=== PATIENT | female | born 1990 | race Caucasian/White ===

== ENCOUNTER 2019-01-03 07:51 | Inpatient (IN) | payer OTHER ==
[2019-01-03] MEDS ORDERED: METHYLERGONOVINE 0.2 MG INJ IM (09:00)
[2019-01-03] MEDS ORDERED: OXYTOCIN 30 UNITS/LR 500 ML IV (09:00)
[2019-01-03] MEDS ORDERED: CARBOPROST 250 MCG INJ IM (09:00)
[2019-01-03] MEDS ORDERED: MISOPROSTOL 200 MCG TAB PR (09:00)
[2019-01-03 09:05] LABS: ADD MAN DIFF? NO
[2019-01-03 09:08] LABS: WHITE BLOOD COUNT 12.3 10^3/ul (4.8-10.8)
[2019-01-03 09:08] LABS: BASOPHILS % 0.3 % (0.0-2.0); EOSINOPHILS # 0.1 10^3/ul (0.0-0.5); EOSINOPHILS % 0.7 % (0.0-7.0); HEMATOCRIT 37.5 % (37.0-47.0); HEMOGLOBIN 11.8 g/dl (12.0-16.0); LYMPHOCYTES # 2.5 10^3/ul (0.8-2.9); LYMPHOCYTES % 20.7 % (15.0-51.0); MEAN CORPUSCULAR HEMOGLOBIN 26.2 pg (29.0-33.0); MEAN CORPUSCULAR HGB CONC 31.5 g/dl (32.0-37.0); MEAN CORPUSCULAR VOLUME 83.3 fl (82.0-101.0); MEAN PLATELET VOLUME 12.2 fl (7.4-10.4); MONOCYTE # 0.7 10^3/ul (0.3-0.9); MONOCYTES % 5.8 % (0.0-11.0); NEUTROPHIL # 8.8 10^3/ul (1.6-7.5); NEUTROPHILS % 71.4 % (39.0-77.0); PLATELET COUNT 220 10^3/UL (140-415); RED CELL DISTRIBUTION WIDTH 15.4 % (11.5-14.5)
[2019-01-03 09:30] LABS: INR 0.87; PROTIME 11.9 Sec (11.9-14.9); PT RATIO 0.9
[2019-01-03 09:31] LABS: PARTIAL THROMBOPLASTIN TIME 28.3 Sec (23.0-35.0)
[2019-01-03] MEDS: LACTATED RINGER'S 1,000 ML IV ×3 (11:34→22:45)
[2019-01-03] MEDS: MISOPROSTOL 50 MCG CAPSULE PO ×3 (12:35→20:50)
[2019-01-03 19:19] LABS: RAPID PLASMA REAGIN NONREACTIVE (NR)
[2019-01-04] MEDS: MISOPROSTOL 50 MCG CAPSULE PO ×3 (00:50→09:00)
[2019-01-04] MEDS: LACTATED RINGER'S 1,000 ML IV ×2 (03:59→08:27)
[2019-01-04] MEDS ORDERED: FENTAnyl 50 MCG/ML VIAL (10:40)
[2019-01-04] MEDS ORDERED: FENTAnyl 2MCG/ML-ROPIV 0.2% 100 ML (10:40)
[2019-01-04] MEDS ORDERED: NALOXONE (0.4 MG/ML) INJ IV (11:00)
[2019-01-04] MEDS ORDERED: FENTAnyl 2MCG/ML-ROPIV 0.2% 100 ML BAG EPI (11:00)
[2019-01-04] MEDS: LIDOCAINE 1% (MPF) 30 ML INJ INJ (12:28)
[2019-01-04] MEDS: OXYTOCIN 30 UNITS/LR 500 ML IV ×2 (12:29→13:10)
[2019-01-04] MEDS: LACTATED RINGER'S 1,000 ML IV* ×2 (13:59→21:59)
[2019-01-04] MEDS ORDERED: METHYLERGONOVINE 0.2 MG INJ IM (14:00)
[2019-01-04] MEDS ORDERED: CARBOPROST 250 MCG INJ IM (14:00)
[2019-01-04] MEDS ORDERED: MISOPROSTOL 200 MCG TAB PR (14:00)
[2019-01-04] MEDS ORDERED: OXYTOCIN 30 UNITS/LR 500 ML IV (14:00)
[2019-01-04] MEDS: HYDROCODONE/APAP (5/325) TAB PO (14:34)
[2019-01-04] MEDS: BENZOCAINE 20% 56 ML SPRAY TOP (14:35)
[2019-01-04] MEDS: WITCH HAZEL/GLYCERIN PAD PR (14:35)
[2019-01-04] MEDS: IBUPROFEN 600 MG TAB PO ×2 (18:41→23:42)
[2019-01-04] MEDS: SENNA/DOCUSATE NA (8.6MG/50MG) TAB PO (21:03)
[2019-01-05] MEDS: LACTATED RINGER'S 1,000 ML IV* ×2 (05:38→13:59)
[2019-01-05] MEDS: IBUPROFEN 600 MG TAB PO ×4 (05:39→23:50)
[2019-01-05 08:33] LABS: ADD MAN DIFF? NO
[2019-01-05 08:38] LABS: BASOPHIL # 0.1 10^3/ul (0.0-0.1); BASOPHILS % 0.5 % (0.0-2.0); EOSINOPHILS # 0.1 10^3/ul (0.0-0.5); EOSINOPHILS % 0.5 % (0.0-7.0); HEMATOCRIT 30.6 % (37.0-47.0); HEMOGLOBIN 9.5 g/dl (12.0-16.0); LYMPHOCYTES # 1.5 10^3/ul (0.8-2.9); LYMPHOCYTES % 13.9 % (15.0-51.0); MEAN CORPUSCULAR HEMOGLOBIN 26.2 pg (29.0-33.0); MEAN CORPUSCULAR VOLUME 84.5 fl (82.0-101.0); MONOCYTES % 8.8 % (0.0-11.0); NEUTROPHIL # 8.3 10^3/ul (1.6-7.5); NEUTROPHILS % 75.4 % (39.0-77.0); PLATELET COUNT 168 10^3/UL (140-415); RED BLOOD COUNT 3.62 10^6/ul (4.20-5.40); RED CELL DISTRIBUTION WIDTH 15.8 % (11.5-14.5)
[2019-01-05] MEDS: SENNA/DOCUSATE NA (8.6MG/50MG) TAB PO ×2 (10:29→21:40)
[2019-01-05] MEDS: ACETAMINOPHEN 325 MG TAB PO (21:40)
[2019-01-06] MEDS: IBUPROFEN 600 MG TAB PO (05:44)
[2019-01-06] MEDS: DIPHTH/TET/ACEL PERTUSS (ADULT) 0.5 ML VIAL IM* (07:33)
[2019-01-06] MEDS: SENNA/DOCUSATE NA (8.6MG/50MG) TAB PO (09:58)
== END 2019-01-06 11:52 | disposition home or self-care (01) | DRG 807 ==
LOC: L-D 07:51 → PP1 01-04 13:59
PROVIDERS: Obstetrics & Gynecology
PROC: 10E0XZZ Delivery of Products of Conception, External Approach (ICD-10-PCS; principal; 2019-01-04)
PROC: 0KQM0ZZ Repair Perineum Muscle, Open Approach (ICD-10-PCS; 2019-01-04)
DX: O70.1 Second degree perineal laceration during delivery (principal); O69.81X0 Labor and delivery complicated by cord around neck, without compression, not applicable or unspecified; Z37.0 Single live birth; Z3A.39 39 weeks gestation of pregnancy
CPT/HCPCS: 62319; 76815; 85025; 85610; 85730; 86592; 86850; 86900; 86901; 99464